=== PATIENT | female | born 1985 | race Caucasian/White ===

== ENCOUNTER 2018-11-17 23:38 | Emergency (ER) | payer SELFPAY ==
[~2018-11-17] VITALS: Ht 152.4 cm; Wt 59.0 kg
[2018-11-18 00:24] LABS: HEMATOCRIT 34 % (35-52); MEAN CORPUSCULAR HEMOGLOBIN 27 PG (25-34); MEAN CORPUSCULAR HGB CONC 33 G/DL (32-36); MEAN CORPUSCULAR VOLUME 82 FL (80-99); WHITE BLOOD COUNT 8.6 10^3/uL (4.3-11.0)
[2018-11-18 00:25] LABS: BASOPHILS # (AUTO) 0.1 10^3/uL (0.0-0.1); BASOPHILS % (AUTO) 1 % (0-10); EOSINOPHILS # (AUTO) 0.1 10^3/uL (0.0-0.3); EOSINOPHILS % (AUTO) 1 % (0-10); LYMPHOCYTES # (AUTO) 3.1 X 10^3 (1.0-4.0); LYMPHOCYTES % (AUTO) 35 % (12-44); MEAN PLATELET VOLUME 9.1 FL (7.4-10.4); MONOCYTES # (AUTO) 0.5 X 10^3 (0.0-1.0); MONOCYTES % (AUTO) 6 % (0-12); NEUTROPHILS # (AUTO) 4.8 X 10^3 (1.8-7.8); NEUTROPHILS % (AUTO) 57 % (42-75); PLATELET COUNT 291 10^3/uL (130-400); RED CELL DISTRIBUTION WIDTH 13.2 % (10.0-14.5)
--- NOTE | 2018-11-18 00:35 | ED Chest Pain ---
General Chief Complaint: Chest Pain Stated Complaint: CHEST PAIN Nursing Triage Note: pt states started 3 days ago when she woke up, no known injury, moved to right arm and then middle of back Nursing Sepsis Screen: No Definite Risk Source: patient, family History of Present Illness Date Seen by Provider: Nov 18, 2018 Time Seen by Provider: 00:35 Initial Comments 32-year-old female presenting with complaints of right-sided chest pain. She has had similar pain daily for the last 3 days. She denies any injury. The pain has come on at different times. It does seem to be worse if she lays down. The initial onset of pain was 3 days ago and woke her up from sleep. She has been under extra stress and has been working a lot. She complains of pain from her right shoulder and upper back that was across her chest. It causes her to have sharp pains and become short of breath when it happens. It lasts for approximately 30-45 minutes. Then the pain goes away. She has not taken anything to help with the pain. She had another episode yesterday and again tonight. Tonight the pain came on after she had been drinking some alcohol. She came to the emergency department to be checked out. She states that there is a family history of cardiac disease. She was concerned that she might be having heart problems. Allergies and Home Medications Allergies Coded Allergies: No Known Drug Allergies (Unverified , 11/18/18) Home Medications Omeprazole 20 Mg Capsule.dr, 20 MG PO DAILY Prescribed by: ELIAS SALDANA on 11/18/18 0123 Patient Home Medication List Home Medication List Reviewed: Yes Review of Systems Review of Systems Constitutional: No chills, No fever EENTM: No Symptoms Reported Respiratory: Shortness of Air; Denies Stridor, Denies Wheezing Cardiovascular: Chest Pain (right shoulder and upper back pain that radiates across her chest); Denies Edema, Denies Irregular Heart Rate, Denies Lightheadedness, Denies Palpitations Gastrointestinal: Denies Constipated, Denies Diarrhea; Nausea Genitourinary: Denies Burning, Denies Flank Pain, Denies Hematuria Musculoskeletal: see HPI Skin: No change in color, No rash Psychiatric/Neurological: Anxiety Past Njcctyu-Vqbmbz-Zdmjxi Hx Past Med/Social Hx: Reviewed Nursing Past Med/Soc Hx Patient Social History Alcohol Use: Occasionally Uses Recreational Drug Use: No Smoking Status: Current Everyday Smoker Type Used: Cigarettes 2nd Hand Smoke Exposure: No Recent Foreign Travel: No Contact w/Someone Who Travel: No Recent Infectious Disease Expo: No Recent Hopitalizations: No Physical Abuse: No Sexual Abuse: No Mistreated: No Fear: No Seasonal Allergies Seasonal Allergies: No Past Medical History Surgeries: Yes Section, Tubal Ligation Respiratory: No Cardiac: No Neurological: No Genitourinary: No Gastrointestinal: No Musculoskeletal: No Endocrine: No HEENT: No Cancer: No Psychosocial: No Integumentary: No Blood Disorders: No Physical Exam Vital Signs Vital Signs - First Documented 11/18/18 00:05 Temp 98.3 Pulse 92 Resp 18 B/P (MAP) 153/82 (105) Pulse Ox 100 O2 Delivery Room Air Capillary Refill : Less Than 3 Seconds Height, Weight, BMI Height: 5'0" Weight: 130lbs. oz. 58.819763qu; BMI Method:Stated General Appearance: Anxious, Mild Distress HEENT: PERRL/EOMI, Other (widespread poor dentition) Neck: Full Range of Motion, Normal Inspection, Non Tender, Supple; No Carotid Bruit, No JVD Respiratory: Chest Non Tender, Lungs Clear, Normal Breath Sounds, No Accessory Muscle Use, No Respiratory Distress Cardiovascular: Regular Rate, Rhythm, Normal Peripheral Pulses Gastrointestinal: Normal Bowel Sounds, No Pulsatile Mass, Non Tender, Soft Rectal: Deferred Extremity: Normal Capillary Refill, Normal Inspection, Non Tender, No Calf Tenderness Neurologic/Psychiatric: Alert, Oriented x3, No Motor/Sensory Deficits, 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 Skin: Normal Color, Warm/Dry Progress/Results/Core Measures Results/Orders Lab Results Laboratory Tests Test 11/18/18 00:05 Range/Units White Blood Count 8.6 4.3-11.0 10^3/uL Red Blood Count 4.13 L 4.35-5.85 10^6/uL Hemoglobin 11.0 L 11.5-16.0 G/DL Hematocrit 34 L 35-52 % Mean Corpuscular Volume 82 80-99 FL Mean Corpuscular Hemoglobin 27 25-34 PG Mean Corpuscular Hemoglobin Concent 33 32-36 G/DL Red Cell Distribution Width 13.2 10.0-14.5 % Platelet Count 291 130-400 10^3/uL Mean Platelet Volume 9.1 7.4-10.4 FL Neutrophils (%) (Auto) 57 42-75 % Lymphocytes (%) (Auto) 35 12-44 % Monocytes (%) (Auto) 6 0-12 % Eosinophils (%) (Auto) 1 0-10 % Basophils (%) (Auto) 1 0-10 % Neutrophils # (Auto) 4.8 1.8-7.8 X 10^3 Lymphocytes # (Auto) 3.1 1.0-4.0 X 10^3 Monocytes # (Auto) 0.5 0.0-1.0 X 10^3 Eosinophils # (Auto) 0.1 0.0-0.3 10^3/uL Basophils # (Auto) 0.1 0.0-0.1 10^3/uL Prothrombin Time 13.1 12.2-14.7 SEC INR Comment 1.0 0.8-1.4 Activated Partial Thromboplast Time 28 24-35 SEC Sodium Level 140 135-145 MMOL/L Potassium Level 3.5 L 3.6-5.0 MMOL/L Chloride Level 102 98-107 MMOL/L Carbon Dioxide Level 23 21-32 MMOL/L Anion Gap 15 H 5-14 MMOL/L Blood Urea Nitrogen 9 7-18 MG/DL Creatinine 1.08 0.60-1.30 MG/DL Estimat Glomerular Filtration Rate 59 BUN/Creatinine Ratio 8 Glucose Level 94 70-105 MG/DL Calcium Level 9.0 8.5-10.1 MG/DL Corrected Calcium 8.8 8.5-10.1 MG/DL Magnesium Level 1.8 1.6-2.4 MG/DL Total Bilirubin 0.2 0.1-1.0 MG/DL Aspartate Amino Transf (AST/SGOT) 82 H 5-34 U/L Alanine Aminotransferase (ALT/SGPT) 40 0-55 U/L Alkaline Phosphatase 44 40-136 U/L Troponin I < 0.30 <0.30 NG/ML Pro-B-Type Natriuretic Peptide 38.6 <75.0 PG/ML Total Protein 7.1 6.4-8.2 GM/DL Albumin 4.3 3.2-4.5 GM/DL Lipase 67 8-78 U/L Serum Alcohol 68 H <10 MG/DL My Orders Orders - ELIAS SALDANA MD Cbc With Automated Diff (11/17/18 23:53) Magnesium (11/17/18 23:53) Chest 1 View Ap/Pa Only (11/17/18 23:53) Ekg Tracing (11/17/18 23:53) Comprehensive Metabolic Panel (11/17/18 23:53) Protime With Inr (11/17/18 23:53) Partial Thromboplastin Time (11/17/18 23:53) O2 (11/17/18 23:53) Monitor-Rhythm Ecg Trace Only (11/17/18 23:53) Ed Iv/Invasive Line Start (11/17/18 23:53) Troponin I (11/17/18 23:53) Probnp Fs (11/17/18 23:53) Lipase (11/18/18 00:11) Alcohol (11/18/18 00:11) Pantoprazole Injection (Protonix Injecti (11/18/18 01:24) Vital Signs/I&O 11/18/18 11/18/18 00:05 01:36 Temp 98.3 Pulse 92 90 Resp 18 15 B/P (MAP) 153/82 (105) 124/78 (93) Pulse Ox 100 100 O2 Delivery Room Air Room Air Blood Pressure Mean: 105 Progress Progress Note #1: Progress Note Obtain labs, electrocardiogram, chest x-ray. Electrocardiogram does not show any acute ST elevation or ischemic changes. Pain does not sound cardiac with it being on the right side from the right shoulder. However with her family history and concern will obtain cardiac enzymes and if she has had cardiac pain and acute coronary syndrome in the last 3 days with her recurrent chest pain then I would expect her troponin to be elevated. Progress Note #2: Progress Note Labs appear stable without acute significant abnormality. Her CBC and chemistry are stable. Her troponin is negative. Her chest x-ray does not demonstrate any acute infiltrate or effusion on my review of her 1 view chest x-ray. Progress Note #3: Progress Note With her labs, EKG, chest x-ray all came back negative without acute significant abnormalities, planned to treat patient for possible GI source of pain. Counseled to follow-up through the clinic for further evaluation. Encouraged to check and see if she needed to have cardiac risk stratification testing based off of her family history. Initial ECG Impression Date: Nov 17, 2018 Initial ECG Impression Time: 23:47 Initial ECG Rate: 85 Initial ECG Rhythm: Normal Sinus Initial ECG Comparisson: No Previous ECG Available Comment Normal sinus rhythm with a heart rate of 85 bpm. Her [place] interval is 129 ms. QT interval is 344 ms and a QT corrected interval 409 ms. She has no acute ST elevation or ischemic changes. She has no prior tracing for comparison. Diagnostic Imaging Diagonstic Imaging: Xray Plain Films/CT/US/NM/MRI: chest Comments On my review of her 1 view chest x-ray she does not have any acute infiltrate or effusion. She has no cardiomegaly. Reviewed: Reviewed by Me Departure Impression Primary Impression: Atypical chest pain Disposition: HOME, SELF-CARE Condition: Stable Departure-Patient Inst. Decision time for Depature: 01:21 Referrals: NO,LOCAL PHYSICIAN (PCP) Primary Care Physician [facility] [place] Patient Instructions: Chest Pain That Is Not Caused by the Heart (DC) Add. Discharge Instructions: Try the acid reducing medicine to see if that helps with your pain since the pain is worse with laying down. Follow a low fat bland diet. Check with clinic and establish with primary provider for further testing/evaluation All discharge instructions reviewed with patient and/or family. Voiced understanding. Scripts Omeprazole (Omeprazole) 20 Mg Capsule. 20 MG PO DAILY for 30 Days, #30 CAP 0 Refills Prov: ELIAS SALDANA MD 11/18/18 ELIAS SALDANA MD Nov 18, 2018 00:35
[2018-11-18 00:42] LABS: PROTHROMBIN TIME PATIENT 13.1 SEC (12.2-14.7)
[2018-11-18 00:43] LABS: LIPASE 67 U/L (8-78)
[2018-11-18 00:44] LABS: BILIRUBIN,TOTAL 0.2 MG/DL (0.1-1.0); CREATININE SERUM 1.08 MG/DL (0.60-1.30); MAGNESIUM 1.8 MG/DL (1.6-2.4); POTASSIUM 3.5 MMOL/L (3.6-5.0); TOTAL PROTEIN 7.1 GM/DL (6.4-8.2)
[2018-11-18 00:45] LABS: ALBUMIN 4.3 GM/DL (3.2-4.5)
[2018-11-18] MEDS ORDERED: OMEP20CA13 PO (01:23)
[2018-11-18] MEDS ORDERED: PANTOPRAZOLE 40 MG (PROTONIX) VIAL IV STA (01:24)
[2018-11-18 01:36] VITALS: BP 124/78
== END 2018-11-18 01:35 | disposition home or self-care (01) ==
LOC: ER FS 23:40
DX: R07.89 Other chest pain (principal); F41.9 Anxiety disorder, unspecified; F17.210 Nicotine dependence, cigarettes, uncomplicated; Z98.51 Tubal ligation status
CPT/HCPCS: 36415; 80320; 83690; 85025; 93005; 96374

== ENCOUNTER 2019-11-08 09:07 | Emergency (ER) | payer SELFPAY ==
[~2019-11-08] VITALS: Ht 152.4 cm; Wt 54.4 kg
[~2019-11-08 09:07] MED LIST: OMEP20CA18 PO
[2019-11-08] MEDS ORDERED: NS IV 1000 ML 1,000 ML IV STA ×2 (09:20→10:30)
--- NOTE | 2019-11-08 09:23 | ED Abdominal Pain ---
General Chief Complaint: Abdominal/GI Problems Stated Complaint: VOMITING; CHEST PAIN Source of Information: Patient, Old Records, RN Notes Reviewed Exam Limitations: No Limitations History of Present Illness Date Seen by Provider: Nov 08, 2019 Time Seen by Provider: 09:15 Initial Comments This patient is a 33-year-old female presents to the emergency department. Awakened this morning with right upper quadrant abdominal pain and vomiting. Patient also had one episode of diarrhea. Patient states still having dry heaves. And only vomiting bile. We'll do medical evaluation tracing Timing/Duration: 1-3 Hours Severity/Quality: Moderate Location: RUQ, Epigastric Radiation: No Radiation Activities at Onset: None Modifying Factors: Worsens With Analgesics, Worsens With Antacids, Worsens With Breathing, Worsens With Coughing, Worsens With Defecating, Worsens With Eating, Worsens With Exercise, Worsens With Lying down, Worsens With Movement, Worsens With Palpation, Worsens With Resting, Worsens With Urinating, Worsens With Vomiting, Worsens With Other Allergies and Home Medications Allergies Coded Allergies: No Known Drug Allergies (Unverified , 11/18/18) Home Medications Omeprazole 20 Mg Capsule.dr, 20 MG PO DAILY Prescribed by: ELIAS SALDANA on 11/18/18 0123 Patient Home Medication List Home Medication List Reviewed: Yes Review of Systems Review of Systems Constitutional: No no symptoms reported, No see HPI, No chills, No diaphoresis, No dizziness, No fever, No malaise, No weakness, No weight gain, No weight loss, No other EENTM: No No Symptoms Reported, No See HPI, No Blurred Vision, No Double Vision, No Eye Pain, No Eye Tearing, No Ear Drainage, No Ear Pain, No Mouth Pain, No Mouth Swelling, No Nose Congestion, No Nose Pain, No Throat Pain, No Throat Swelling, No Other Respiratory: Denies No Symptoms Reported, Denies See HPI, Denies Cough, Denies Orthopnea, Denies Shortness of Air, Denies SOA With Exertion, Denies SOA at Rest, Denies Stridor, Denies Wheezing, Denies Other Cardiovascular: Denies No Symptoms Reported, Denies See HPI, Denies Chest Pain, Denies Edema, Denies Irregular Heart Rate, Denies Lightheadedness, Denies Palpitations, Denies Syncope, Denies Other Gastrointestinal: Denies No Symptoms Reported, Denies See HPI, Denies Abdomen Distended; Abdominal Pain; Denies Blood Streaked Stools, Denies Constipated; Diarrhea; Denies Difficulty Swallowing; Nausea; Denies Poor Appetite, Denies Poor Fluid Intake, Denies Rectal Bleeding; Vomiting; Denies Other Genitourinary: Denies No Symptoms Reported, Denies See HPI, Denies Burning, Denies Discharge, Denies Drainage, Denies Frequency, Denies Flank Pain, Denies Hematuria, Denies Incontinence, Denies Pain, Denies Urgency, Denies Other Musculoskeletal: No no symptoms reported, No see HPI, No back pain, No gout, No joint pain, No joint swelling, No muscle pain, No muscle stiffness, No muscle cramps, No muscle twitching, No muscle weakness, No neck pain, No other Skin: No no symptoms reported, No see HPI, No change in color, No change in hair/nails, No dryness, No hx of skin cancer, No lesions, No lumps, No pruritus, No rash, No other Psychiatric/Neurological: Denies No Symptoms Reported, Denies See HPI, Denies Anxiety, Denies Depressed, Denies Emotional Problems, Denies Headache, Denies Numbness, Denies Paresthesia, Denies Pre-Existing Deficit, Denies Seizure, Denies Tingling, Denies Tremors, Denies Weakness, Denies Other Endocrine: Denies No Symptoms Reported, Denies See HPI, Denies Excessive Sweating, Denies Flushing, Denies Intolerance to Cold, Denies Intolerance to Heat, Denies Increased Hunger, Denies Increased Thrist, Denies Increased Urine, Denies Unexplained Weight Gain, Denies Unexplaned Weight Loss, Denies Other All Other Systems Reviewed Negative Unless Noted: Yes Past Noguimf-Fhwlzq-Insbil Hx Patient Social History Type Used: Cigarettes 2nd Hand Smoke Exposure: No Recent Foreign Travel: No Contact w/Someone Who Travel: No Recent Hopitalizations: No Seasonal Allergies Seasonal Allergies: No Past Medical History Surgeries: Yes Section, Tubal Ligation Respiratory: No Cardiac: No Neurological: No Genitourinary: No Gastrointestinal: No Musculoskeletal: No Endocrine: No HEENT: No Cancer: No Psychosocial: No Integumentary: No Blood Disorders: No Physical Exam Vital Signs Vital Signs - First Documented 11/08/19 09:10 Temp 36.5 Pulse 77 Resp 14 B/P (MAP) 155/81 (105) Pulse Ox 100 O2 Delivery Room Air Capillary Refill : Height/Weight/BMI Height: 5'0" Weight: 130lbs. oz. 58.218123fd; BMI Method:Stated General Appearance: WD/WN, no apparent distress Respiratory: chest non-tender, lungs clear, normal breath sounds, no respiratory distress, no accessory muscle use Cardiovascular: normal peripheral pulses, regular rate, rhythm, no edema, no gallop, no JVD, no murmur Gastrointestinal: normal bowel sounds, non tender, soft, no organomegaly, no pulsatile mass Extremities: normal range of motion, non-tender, normal inspection, no pedal edema, no calf tenderness, normal capillary refill Skin: normal color, warm/dry Progress/Results/Core Measures Results/Orders Lab Results Laboratory Tests Test 11/08/19 09:20 11/08/19 10:45 Range/Units White Blood Count 17.9 H 4.3-11.0 10^3/uL Red Blood Count 4.21 L 4.35-5.85 10^6/uL Hemoglobin 11.0 L 11.5-16.0 G/DL Hematocrit 34 L 35-52 % Mean Corpuscular Volume 80 80-99 FL Mean Corpuscular Hemoglobin 26 25-34 PG Mean Corpuscular Hemoglobin Concent 33 32-36 G/DL Red Cell Distribution Width 14.5 10.0-14.5 % Platelet Count 296 130-400 10^3/uL Mean Platelet Volume 9.0 7.4-10.4 FL Neutrophils (%) (Auto) 93 H 42-75 % Lymphocytes (%) (Auto) 5 L 12-44 % Monocytes (%) (Auto) 2 0-12 % Eosinophils (%) (Auto) 0 0-10 % Basophils (%) (Auto) 0 0-10 % Neutrophils # (Auto) 16.6 H 1.8-7.8 X 10^3 Lymphocytes # (Auto) 0.8 L 1.0-4.0 X 10^3 Monocytes # (Auto) 0.4 0.0-1.0 X 10^3 Eosinophils # (Auto) 0.0 0.0-0.3 10^3/uL Basophils # (Auto) 0.0 0.0-0.1 10^3/uL Neutrophils % (Manual) 99 % Lymphocytes % (Manual) 0 % Monocytes % (Manual) 0 % Eosinophils % (Manual) 0 % Basophils % (Manual) 0 % Band Neutrophils 1 % Sodium Level 140 135-145 MMOL/L Potassium Level 3.7 3.6-5.0 MMOL/L Chloride Level 105 98-107 MMOL/L Carbon Dioxide Level 24 21-32 MMOL/L Anion Gap 11 5-14 MMOL/L Blood Urea Nitrogen 10 7-18 MG/DL Creatinine 0.71 0.60-1.30 MG/DL Estimat Glomerular Filtration Rate > 60 BUN/Creatinine Ratio 14 Glucose Level 140 H 70-105 MG/DL Calcium Level 9.1 8.5-10.1 MG/DL Corrected Calcium 8.7 8.5-10.1 MG/DL Total Bilirubin 0.2 0.1-1.0 MG/DL Aspartate Amino Transf (AST/SGOT) 18 5-34 U/L Alanine Aminotransferase (ALT/SGPT) 14 0-55 U/L Alkaline Phosphatase 36 L 40-136 U/L Total Protein 7.3 6.4-8.2 GM/DL Albumin 4.5 3.2-4.5 GM/DL Lipase 53 8-78 U/L Urine Color YELLOW Urine Clarity CLEAR Urine pH 7.5 5-9 Urine Specific Keavy 1.020 1.016-1.022 Urine Protein NEGATIVE NEGATIVE Urine Glucose (UA) NEGATIVE NEGATIVE Urine Ketones NEGATIVE NEGATIVE Urine Nitrite NEGATIVE NEGATIVE Urine Bilirubin NEGATIVE NEGATIVE Urine Urobilinogen 0.2 < = 1.0 MG/DL Urine Leukocyte Esterase NEGATIVE NEGATIVE Urine RBC (Auto) NEGATIVE NEGATIVE Urine RBC NONE /HPF Urine WBC 0-2 /HPF Urine Squamous Epithelial Cells 0-2 /HPF Urine Crystals NONE /LPF Urine Bacteria TRACE /HPF Urine Casts NONE /LPF Urine Mucus NEGATIVE /LPF Urine Culture Indicated NO Urine Test NEGATIVE NEGATIVE My Orders Orders - SCOTT RODRIGUEZ MD Ed Iv/Invasive Line Start (11/08/19 09:20) Cbc With Automated Diff (11/08/19 09:20) Comprehensive Metabolic Panel (11/08/19 09:20) Drug Screen Stat (Urine) (11/08/19 09:20) Urinalysis (11/08/19 09:20) Lipase (11/08/19 09:20) Abdomen Flat & Upright/Decub (11/08/19 09:20) Ondansetron Injection (Zofran Injectio (11/08/19 09:30) Ns Iv 1000 Ml (Sodium Chloride 0.9%) (11/08/19 09:20) Manual Differential (11/08/19 09:20) Hcg,Qualitative Urine (11/08/19 10:19) Prochlorperazine Injection (Compazine In (11/08/19 10:25) Ns Iv 1000 Ml (Sodium Chloride 0.9%) (11/08/19 10:30) Medications Given in ED Current Medications Medications Dose Ordered Sig/Pam Route Start Time Stop Time Status Last Admin Dose Admin Ondansetron HCl 4 mg ONCE ONCE IVP 11/08/19 09:30 11/08/19 09:31 DC 11/08/19 09:29 4 MG Prochlorperazine Edisylate 10 mg ONCE ONCE IV 11/08/19 10:25 11/08/19 10:26 DC 11/08/19 10:31 10 MG Vital Signs/I&O 11/08/19 09:10 Temp 36.5 Pulse 77 Resp 14 B/P (MAP) 155/81 (105) Pulse Ox 100 O2 Delivery Room Air Progress Progress Note : Time: 11:07 Progress Note Negative evaluation for any acute findings. Patient's nausea vomiting much improved. Patient is to encourage by mouth fluids. Advance diet slowly as tolerated. C ontinue Zofran as prescribed. Follow-up with PCP in 2-3 days. Initial ECG Impression Date: Nov 08, 2019 Initial ECG Impression Time: 09:11 Initial ECG Rate: 80 Initial ECG Rhythm: Normal Sinus Initial ECG Intervals: Normal Initial ECG Impression: Normal Comment NSR with heart rate 80 Departure Impression Primary Impression: Nausea and vomiting Disposition: 01 HOME, SELF-CARE Condition: Stable Departure-Patient Inst. Decision time for Depature: 11:08 Referrals: WILLIAM BLACK DO (PCP) Primary Care Physician Patient Instructions: Food Poisoning (DC) Add. Discharge Instructions: Patient is to encourage by mouth fluids. Advance diet slowly as tolerated. Cont inue Zofran as prescribed. Follow-up with PCP in 2-3 days. All discharge instructions reviewed with patient and/or family. Voiced understanding. Scripts Ondansetron (Ondansetron Odt) 4 Mg Tab.rapdis 4 MG PO BID PRN for NAUSEA/VOMITING for 10 Days, #10 TAB 0 Refills Prov: SCOTT RODRIGUEZ MD 11/08/19 SCOTT RODRIGUEZ MD Nov 08, 2019 09:23
[2019-11-08] MEDS ORDERED: ONDANSETRON 4 MG/2 ML (SDV) Z0FRAN IVP ONE (09:30)
[2019-11-08 09:32] LABS: HEMATOCRIT 34 % (35-52); MEAN CORPUSCULAR HEMOGLOBIN 26 PG (25-34); MEAN CORPUSCULAR HGB CONC 33 G/DL (32-36); MEAN CORPUSCULAR VOLUME 80 FL (80-99); NEUTROPHILS % (AUTO) 93 % (42-75); PLATELET COUNT 296 10^3/uL (130-400); RED CELL DISTRIBUTION WIDTH 14.5 % (10.0-14.5); WHITE BLOOD COUNT 17.9 10^3/uL (4.3-11.0)
[2019-11-08 09:33] LABS: BASOPHILS % (AUTO) 0 % (0-10); EOSINOPHILS % (AUTO) 0 % (0-10); LYMPHOCYTES # (AUTO) 0.8 X 10^3 (1.0-4.0); LYMPHOCYTES % (AUTO) 5 % (12-44); MONOCYTES # (AUTO) 0.4 X 10^3 (0.0-1.0); MONOCYTES % (AUTO) 2 % (0-12); NEUTROPHILS # (AUTO) 16.6 X 10^3 (1.8-7.8)
[2019-11-08 09:55] LABS: ALANINE AMINOTRANSFERASE 14 U/L (0-55); ALBUMIN 4.5 GM/DL (3.2-4.5); ALKALINE PHOSPHATASE 36 U/L (40-136); BILIRUBIN,TOTAL 0.2 MG/DL (0.1-1.0); BUN/CREATININE RATIO 14; CALCIUM 9.1 MG/DL (8.5-10.1); CARBON DIOXIDE 24 MMOL/L (21-32); CHLORIDE 105 MMOL/L (98-107); CREATININE SERUM 0.71 MG/DL (0.60-1.30); GFR ESTIMATED > 60; GLUCOSE 140 MG/DL (70-105); LIPASE 53 U/L (8-78); POTASSIUM 3.7 MMOL/L (3.6-5.0); SODIUM 140 MMOL/L (135-145); TOTAL PROTEIN 7.3 GM/DL (6.4-8.2)
[2019-11-08 09:56] LABS: BAND NEUTROPHILS 1 %; BASOPHILS % (MANUAL) 0 %; EOSINOPHILS % (MANUAL) 0 %; LYMPHOCYTES % (MANUAL) 0 %; MONOCYTES % (MANUAL) 0 %; NEUTROPHILS % (MANUAL) 99 %
--- NOTE | 2019-11-08 10:03 | Diagnostic Imaging Report ---
INDICATION: Nausea and vomiting. Abdominal pain. COMPARISON: None FINDINGS: Supine and upright views the abdomen demonstrate nonobstructive small bowel gas pattern. Mild amount of air and stool are seen scattered throughout the colon. No abnormal air-fluid levels or large collection of free intraperitoneal air is seen. No abnormal extraosseous calcifications or radiopaque foreign bodies are identified. Bony structures are age-appropriate. IMPRESSION: 1. Nonobstructive small bowel gas pattern. Dictated by: Dictated on workstation # [id number]
[2019-11-08] MEDS ORDERED: PROCHLORPERAZINE 10 MG/2ML INJ (COMPAZINE) IV ONE (10:25)
--- NOTE | 2019-11-08 10:30 | NUR ---
Pts friend "Medhat" called requesting pt update. This RN spoke with pt and said it was okay to give him an update. Pt update given to Medhat.
[2019-11-08 10:56] LABS: HCG,QUALITATIVE URINE NEGATIVE (NEGATIVE)
[2019-11-08 11:01] LABS: BACTERIA,URINE TRACE /HPF; BILIRUBIN,URINE NEGATIVE (NEGATIVE); CLARITY,URINE CLEAR; COLOR,URINE YELLOW; GLUCOSE, URINE (UA) NEGATIVE (NEGATIVE); KETONES,URINE NEGATIVE (NEGATIVE); LEUKOCYTE ESTERASE ,URINE NEGATIVE (NEGATIVE); NITRITE,URINE NEGATIVE (NEGATIVE); PH,URINE 7.5 (5-9); PROTEIN,URINE NEGATIVE (NEGATIVE); SQUAMOUS EPITHELIAL CELL,UR 0-2 /HPF; WBC,URINE 0-2 /HPF
[2019-11-08] MEDS ORDERED: ONDA4TAB11 PO (11:09)
[2019-11-08 11:10] LABS: AMPHETAMINE SCREEN, URINE NEGATIVE (NEGATIVE); BARBITURATE SCREEN URINE NEGATIVE (NEGATIVE); BENZODIAZEPINES SCREEN URINE NEGATIVE (NEGATIVE); CANNABINOID SCREEN, URINE NEGATIVE (NEGATIVE); COCAINE SCREEN URINE NEGATIVE (NEGATIVE); METHADONE STAT NEGATIVE (NEGATIVE); METHAMPHETAMINE SCREEN URINE S NEGATIVE (NEGATIVE); OPIATE SCREEN URINE NEGATIVE (NEGATIVE); OXYCODONE STAT NEGATIVE (NEGATIVE); PROPOXYPHENE STAT NEGATIVE (NEGATIVE); TRICYCLIC ANTIDEPRESSANTS SCRE NEGATIVE (NEGATIVE)
[2019-11-08 11:21] VITALS: BP 136/78
== END 2019-11-08 11:21 | disposition home or self-care (01) ==
LOC: EDUNIT# 09:07 → ER FS 09:09
DX: R11.2 Nausea with vomiting, unspecified (principal); R10.11 Right upper quadrant pain; R10.13 Epigastric pain
CPT/HCPCS: 36415; 74019; 80053; 80306; 81000; 83690; 84703; 85007; 85027